=== PATIENT | female | born 1990 | race Caucasian/White ===

== ENCOUNTER 2017-11-07 14:39 | Outpatient (CLI) | payer OTHER, MEDICAID ==
[2017-11-07] MEDS ORDERED: HYDROCODONE/APAP (5/325) TAB PO (15:30)
[2017-11-07] MEDS: LACTATED RINGER'S 1,000 ML IV (15:51)
[2017-11-07 16:01] LABS: ADD MAN DIFF? NO
[2017-11-07 16:02] LABS: WHITE BLOOD COUNT 12.7 10^3/ul (4.8-10.8)
[2017-11-07 16:02] LABS: BASOPHILS % 0.2 % (0.0-2.0); EOSINOPHILS # 0.1 10^3/ul (0.0-0.5); EOSINOPHILS % 0.9 % (0.0-7.0); HEMATOCRIT 38.4 % (37.0-47.0); LYMPHOCYTES # 2.1 10^3/ul (0.8-2.9); LYMPHOCYTES % 16.8 % (15.0-51.0); MEAN CORPUSCULAR HEMOGLOBIN 29.4 pg (29.0-33.0); MEAN CORPUSCULAR HGB CONC 33.9 g/dl (32.0-37.0); MEAN CORPUSCULAR VOLUME 86.9 fl (82.0-101.0); MEAN PLATELET VOLUME 11.6 fl (7.4-10.4); MONOCYTE # 0.7 10^3/ul (0.3-0.9); MONOCYTES % 5.4 % (0.0-11.0); NEUTROPHIL # 9.7 10^3/ul (1.6-7.5); NEUTROPHILS % 76.3 % (39.0-77.0); PLATELET COUNT 234 10^3/UL (140-415); RED BLOOD COUNT 4.42 10^6/ul (4.20-5.40); RED CELL DISTRIBUTION WIDTH 12.9 % (11.5-14.5)
[2017-11-07 16:22] LABS: ADD UMIC YES; UR ASCORBIC ACID NEGATIVE (NEGATIVE); UR BACTERIA FEW /HPF (NONE SEEN); UR BILIRUBIN (Dip) NEGATIVE (NEGATIVE); UR BLOOD (Dip) 2+ mg/dL (NEGATIVE); UR CALCIUM OXALATE CRYSTAL MODERATE /HPF (NONE SEEN); UR CLARITY SLIGHTLY CLOUDY (CLEAR); UR COLOR YELLOW (YELLOW); UR GLUCOSE (Dip) NEGATIVE (NEGATIVE); UR KETONES (Dip) NEGATIVE (NEGATIVE); UR LEUKOCYTE ESTERASE (Dip) NEGATIVE Leu/ul (NEGATIVE); UR MUCUS FEW /HPF (NONE SEEN); UR NITRITE (Dip) NEGATIVE (NEGATIVE); UR RBC 77 /HPF (0-5); UR SPECIFIC GRAVITY (Dip) 1.016 (1.003-1.030); UR SQUAMOUS EPITHELIAL CELL FEW /HPF (FEW); UR TOTAL PROTEIN (Dip) 1+ mg/dl (NEGATIVE); UR UROBILINOGEN (Dip) NEGATIVE (NEGATIVE); UR WBC 5 /HPF (0-5)
== END 2017-11-07 16:50 | disposition home or self-care (01) ==
LOC: OBT 14:39 → L-D 14:39 → OBT 16:50
DX: O26.893 Other specified pregnancy related conditions, third trimester (principal); Z3A.38 38 weeks gestation of pregnancy; R10.31 Right lower quadrant pain; Z87.442 Personal history of urinary calculi
CPT/HCPCS: 36415; 76818; 81001; 85025; 96360

== ENCOUNTER 2017-11-17 07:43 | Inpatient (IN) | payer OTHER ==
[2017-11-17] MEDS ORDERED: METHYLERGONOVINE 0.2 MG INJ IM (08:30)
[2017-11-17] MEDS ORDERED: CARBOPROST 250 MCG INJ IM (08:30)
[2017-11-17] MEDS ORDERED: OXYTOCIN 30 UNITS/LR 500 ML IV (08:30)
[2017-11-17] MEDS ORDERED: MISOPROSTOL 200 MCG TAB PR (08:30)
[2017-11-17] MEDS ORDERED: BUTORPHANOL 2 MG INJ IV (08:30)
[2017-11-17] MEDS: LACTATED RINGER'S 1,000 ML IV ×2 (08:59→17:35)
[2017-11-17 09:14] LABS: ADD MAN DIFF? NO
[2017-11-17 09:16] LABS: WHITE BLOOD COUNT 11.6 10^3/ul (4.8-10.8)
[2017-11-17 09:16] LABS: BASOPHILS % 0.3 % (0.0-2.0); EOSINOPHILS # 0.1 10^3/ul (0.0-0.5); EOSINOPHILS % 1.1 % (0.0-7.0); HEMATOCRIT 38.9 % (37.0-47.0); HEMOGLOBIN 13.1 g/dl (12.0-16.0); LYMPHOCYTES # 1.6 10^3/ul (0.8-2.9); LYMPHOCYTES % 14.2 % (15.0-51.0); MEAN CORPUSCULAR HEMOGLOBIN 29.2 pg (29.0-33.0); MEAN CORPUSCULAR HGB CONC 33.7 g/dl (32.0-37.0); MEAN CORPUSCULAR VOLUME 86.6 fl (82.0-101.0); MEAN PLATELET VOLUME 11.7 fl (7.4-10.4); MONOCYTE # 0.5 10^3/ul (0.3-0.9); MONOCYTES % 4.3 % (0.0-11.0); NEUTROPHIL # 9.3 10^3/ul (1.6-7.5); NEUTROPHILS % 79.8 % (39.0-77.0); PLATELET COUNT 229 10^3/UL (140-415); RED BLOOD COUNT 4.49 10^6/ul (4.20-5.40); RED CELL DISTRIBUTION WIDTH 13.2 % (11.5-14.5)
[2017-11-17] MEDS: DINOPROSTONE 10 MG VAG SUPP VAG ×2 (09:33→22:34)
[2017-11-17] MEDS: AMPICILLIN 2 GM/NS (PMX) 100 ML IV (09:35)
[2017-11-17 09:56] LABS: PROTIME 12.2 Sec (11.9-14.9)
[2017-11-17 09:57] LABS: PARTIAL THROMBOPLASTIN TIME 24.9 Sec (25.0-35.0)
[2017-11-17 12:17] LABS: HEPATITIS B SURFACE ANTIGEN NEGATIVE (NEGATIVE)
[2017-11-17] MEDS: AMPICILLIN 1 GM/NS (PMX) 50 ML IV ×3 (13:23→21:41)
[2017-11-17 16:46] LABS: RAPID PLASMA REAGIN NONREACTIVE (NR)
[2017-11-18] MEDS: LACTATED RINGER'S 1,000 ML IV ×4 (02:21→20:01)
[2017-11-18] MEDS: AMPICILLIN 1 GM/NS (PMX) 50 ML IV ×6 (02:40→21:00)
[2017-11-18] MEDS: MISOPROSTOL 25 MCG CAPSULE PO ×3 (12:06→21:00)
[2017-11-19] MEDS: AMPICILLIN 1 GM/NS (PMX) 50 ML IV ×6 (01:03→21:02)
[2017-11-19] MEDS: OXYTOCIN 30 UNITS/LR 500 ML IV ×2 (02:25→21:05)
[2017-11-19] MEDS: LACTATED RINGER'S 1,000 ML IV ×3 (04:37→15:15)
[2017-11-19] MEDS ORDERED: FENTAnyl 2MCG/ML-ROPIV 0.2% 100 ML (10:32)
[2017-11-19] MEDS ORDERED: NALOXONE (0.4 MG/ML) INJ IV (11:00)
[2017-11-19] MEDS ORDERED: ONDANSETRON 4 MG INJ IV (11:00)
[2017-11-19] MEDS ORDERED: DIPHENHYDRAMINE 50 MG INJ IV (11:00)
[2017-11-19] MEDS: FENTAnyl 2MCG/ML-ROPIV 0.2% 100 ML BAG EPI (19:41)
[2017-11-20] MEDS: LACTATED RINGER'S 1,000 ML IV ×2 (00:03→06:49)
[2017-11-20] MEDS: AMPICILLIN 1 GM/NS (PMX) 50 ML IV ×2 (00:56→04:56)
[2017-11-20] MEDS: FENTAnyl 2MCG/ML-ROPIV 0.2% 100 ML BAG EPI (03:20)
[2017-11-20] MEDS: OXYTOCIN 30 UNITS/LR 500 ML IV ×3 (08:01→09:55)
[2017-11-20] MEDS: LIDOCAINE 1% (MPF) 30 ML INJ INJ (08:18)
[2017-11-20] MEDS: IBUPROFEN 600 MG TAB PO (09:14)
[2017-11-20] MEDS: LACTATED RINGER'S 1,000 ML IV* ×2 (09:55→17:08)
[2017-11-20] MEDS ORDERED: ZOLPIDEM 5 MG TAB PO (10:00)
[2017-11-20] MEDS ORDERED: ACETAMINOPHEN 325 MG TAB PO (10:00)
[2017-11-20] MEDS ORDERED: METHYLERGONOVINE 0.2 MG INJ IM (10:00)
[2017-11-20] MEDS ORDERED: OXYTOCIN 30 UNITS/LR 500 ML IV (10:00)
[2017-11-20] MEDS ORDERED: SENNA/DOCUSATE NA (8.6MG/50MG) TAB PO (10:00)
[2017-11-20] MEDS ORDERED: DIPHENHYDRAMINE 25 MG CAP PO (10:00)
[2017-11-20] MEDS ORDERED: MISOPROSTOL 200 MCG TAB PR (10:00)
[2017-11-20] MEDS ORDERED: CARBOPROST 250 MCG INJ IM (10:00)
[2017-11-20] MEDS ORDERED: MAGNESIUM HYDROXIDE 30ML CUP PO (10:00)
[2017-11-20] MEDS ORDERED: HYDROCODONE/APAP (5/325) TAB PO (10:00)
[2017-11-20] MEDS: IBUPROFEN 800 MG TAB PO ×3 (12:00→23:55)
[2017-11-20] MEDS: LANOLIN 7 GM TUBE TOP (18:04)
[2017-11-20] MEDS: WITCH HAZEL/GLYCERIN PAD PR (18:05)
[2017-11-20] MEDS: BENZOCAINE 20% 56 ML SPRAY TOP (18:05)
[2017-11-21] MEDS: IBUPROFEN 800 MG TAB PO ×4 (05:37→23:38)
[2017-11-21 08:39] LABS: ADD MAN DIFF? NO
[2017-11-21 08:45] LABS: BASOPHILS % 0.3 % (0.0-2.0); EOSINOPHILS # 0.2 10^3/ul (0.0-0.5); EOSINOPHILS % 1.4 % (0.0-7.0); HEMATOCRIT 34.2 % (37.0-47.0); HEMOGLOBIN 11.2 g/dl (12.0-16.0); LYMPHOCYTES # 2.1 10^3/ul (0.8-2.9); MEAN CORPUSCULAR HEMOGLOBIN 29.2 pg (29.0-33.0); MEAN CORPUSCULAR HGB CONC 32.7 g/dl (32.0-37.0); MEAN CORPUSCULAR VOLUME 89.3 fl (82.0-101.0); MEAN PLATELET VOLUME 11.6 fl (7.4-10.4); MONOCYTE # 0.6 10^3/ul (0.3-0.9); MONOCYTES % 4.7 % (0.0-11.0); NEUTROPHILS % 77.4 % (39.0-77.0); PLATELET COUNT 219 10^3/UL (140-415); RED BLOOD COUNT 3.83 10^6/ul (4.20-5.40); RED CELL DISTRIBUTION WIDTH 13.7 % (11.5-14.5)
[2017-11-22] MEDS: IBUPROFEN 800 MG TAB PO ×2 (05:51→12:55)
[2017-11-22] MEDS: MEASLES,MUMPS,RUBELLA VACCINE INJ SC* (10:36)
[2017-11-22] MEDS: VARICELLA VACCINE LIVE/PF 1,350 UNIT/0.5 ML ML SC* (10:36)
[2017-11-22] MEDS: DIPHTH/TET/ACEL PERTUSS (ADULT) 0.5 ML VIAL IM* (10:36)
== END 2017-11-22 14:05 | disposition home or self-care (01) | DRG 775 ==
LOC: PP1 11-20 09:25 → L-D 07:43
PROVIDERS: Obstetrics & Gynecology
PROC: 10E0XZZ Delivery of Products of Conception, External Approach (ICD-10-PCS; principal; 2017-11-19)
PROC: 3E033VJ Introduction of Other Hormone into Peripheral Vein, Percutaneous Approach (ICD-10-PCS; 2017-11-19)
DX: O99.214 Obesity complicating childbirth (principal); Z68.41 Body mass index [BMI] 40.0-44.9, adult; E66.9 Obesity, unspecified; Z3A.39 39 weeks gestation of pregnancy; Z37.0 Single live birth
CPT/HCPCS: 62319; 76815; 85025; 85610; 85730; 86592; 86850; 86900; 86901; 87340; 99464